=== PATIENT | male | born 1950 | race Caucasian/White ===

== ENCOUNTER 2020-05-27 22:59 | Inpatient (IN) | payer OTHER ==
[~2020-05-27] VITALS: Ht 180.3 cm; Wt 94.0 kg
--- NOTE | 2020-05-27 23:10 | NUR ---
PT. TO ROOM 10 VIA W/C WITH C/O HAVING A + COVID TEST APPROX. 2 WEEKS AGO AND NOW WITH C/O SOB. O2 SAT ON RA 89%. O2 3 LIT APPLIED. BILATERAL LUNG CARDENAS ARE DEMINISHED. NO C/O CP OFFERED.
[2020-05-27 23:59] LABS: HEMATOCRIT 42.7 % (39.0-50.0); HEMOGLOBIN 14.7 g/dl (14.0-18.0); IMMATURE GRANULOCYTES 0.7 % (0.0-5.0); MEAN CORPUSCULAR HGB CONC 34.4 g/dL CAL (32.0-36.0); NEUT# 8.72 thou/uL (1.82-7.42); RED BLOOD COUNT 4.45 mill/uL (4.70-6.10); RED CELL DISTRI WIDTH 12.8 % (11.5-15.5)
[2020-05-28 00:04] LABS: ALBUMIN 3.6 g/dL (3.2-5.0); ALKALINE PHOSPHATASE 91 u/l (38-126); ANION GAP 15 (6-22 (CALC)); BILIRUBIN, TOTAL 1.5 mg/dL (0.0-1.4); BUN 37 mg/dL (8-23); BUN/CREATININE RATIO 28 (12-20 (CALC)); CARBON DIOXIDE 22 mmol/l (22-30); CHLORIDE 103 mmol/l (95-108); CREATININE 1.3 mg/dL (0.7-1.3); GFR 55 ML/MIN (>=60 (CALC)); GFR FOR AFR.AMER. > 60 ML/MIN (>=60 (CALC)); POTASSIUM 3.7 mmol/l (3.5-5.1); SGOT/AST 53 u/l (19-48); SODIUM 137 mmol/l (137-146); TOTAL PROTEIN 7.9 g/dL (6.3-8.2)
--- NOTE | 2020-05-28 00:10 | NUR ---
RESP. ISOLATION MAINTAINED. NO C/O CP OFFERED. AT SIDE.
[2020-05-28] MEDS ORDERED: HAWTHORNE PO (01:04)
[2020-05-28] MEDS ORDERED: GARLIC OIL 15003 MG PO (01:05)
--- NOTE | 2020-05-28 01:05 | NUR ---
RESTING QUIETLY ON STRETCHER, NO ACUTE DISTRESS NOTED.
[2020-05-28] MEDS ORDERED: [UNRECOGNIZED DRUG - OTHER] PO (01:06)
--- NOTE | 2020-05-28 02:55 | NUR ---
PT VOIDED IN URINAL. SAMPLE SENT. PT STANDING AT BEDSIDE SO STRETCHER REMOVED AND HOSPITAL BED PLACED IN ROOM PT WILL BE AN ER HOLD FOR NOW. WAS AT BEDSIDE AND ADVISED OF ER HOLD. PT RESTING. SATS DECREASING. PT REMAINS ON O2 AT 7 LPM HF NC.
--- NOTE | 2020-05-28 03:06 | NUR ---
DR NOTIFIED OF SAT DOWN TO 97. RT CALLED.
--- NOTE | 2020-05-28 03:12 | NUR ---
HF NC INCREASED TO 11 LPM PER RT. SAT INCREASING. AT 92
[2020-05-28 03:57] LABS: URINE BLOOD DIPSTICK MODERATE (NEGATIVE); URINE COLOR YELLOW; URINE GLUCOSE - DIPSTICK NEGATIVE (NEGATIVE); URINE KETONE NEGATIVE (NEGATIVE); URINE NITRITE - DIPSTICK NEGATIVE (Negative); URINE PH 5.5 (4.5-8.0); URINE PROTEIN - DIPSTICK 100 mg/dL (NEG-TRACE); URINE SPECIFIC GRAVITY 1.025
--- NOTE | 2020-05-28 04:07 | NUR ---
SAT AT 95 %. PT RESTING.
[2020-05-28 04:23] LABS: URINE BILIRUBIN - DIPSTICK SMALL (NEGATIVE); URINE LEUK ESTERASE NEGATIVE (NEGATIVE)
[2020-05-28 04:24] LABS: URINE EPITHELIAL CELLS MODERATE EPI/hpf (0-FEW)
[2020-05-28 04:25] LABS: URINE BACTERIA MODERATE hpf; URINE COARSE GRANULAR CAST FEW lpf; URINE FINE GRAN CAST FEW lpf; URINE HYALINE CAST FEW lpf (NONE-RARE)
--- NOTE | 2020-05-28 06:23 | NUR ---
PT RESTING. IVF INFUSING. PT ON O2 @13 LPM HF-NC. NO C/O AT THIS TIME.
--- NOTE | 2020-05-28 07:29 | NUR ---
RECIEVED FOR CARE. aSSESSMENT COMPLETED. call kendrick with in reach.
--- NOTE | 2020-05-28 11:22 | NUR ---
PATIENT COMFORTABLE. NO DISTRESS. REQUESTED TO USE URINAL. CALL NICOLE WITH IN REACH.
--- NOTE | 2020-05-28 11:36 | NUR ---
Covid swab ( [employer]) collected and sent.
--- NOTE | 2020-05-28 13:07 | NUR ---
DR CAMP AT BEDSIDE TO DISCUSS RESULTS AND POC.
--- NOTE | 2020-05-28 14:33 | NUR ---
REPORT TO Tosha TATE IN SBAR FORMAT. PATIENT AWARE OF PENDING TRANSFER.
--- NOTE | 2020-05-28 15:05 | NUR ---
transferred to impatient bed via stretcher. Stable, no apparent distress, good spirits.
--- NOTE | 2020-05-28 15:10 | NUR ---
TO [facility] VIA HOSPITAL BED, BEDSIDE REPORT GIVEN TO YOSELIN TATE.
[2020-05-28 15:25] VITALS: BP 137/92
--- NOTE | 2020-05-28 16:44 | NUR ---
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 PT DENIES THE NEED FOR OXYGEN BEFORE THIS, STATES WAS HAVING INCREASED SOB WITH MOVEMENT. STATES REFUSES THE FLU OR PNEUMONIA SHOT OR BLOOD PRODUCTS. PT APPEARS TO BE A PLEASANT ALERT/ORIENTED X3 PT. HIGH FLOW 02 AT 15 L PER N/C TO KEEP O2 AT 93-94 %.
--- NOTE | 2020-05-28 17:21 | NUR ---
PT RESTING QUIETLY ON BED, WATCHING TV, NO COMPLAINTS AT THIS TIME
--- NOTE | 2020-05-28 18:12 | NUR ---
PT SITTING UP ON SIDE OF BED, EATING DINNER TRAY. PT DENIES ANY COMPLAINTS AT THIS TIME. DENIES SOB WHILE SITTING, SATS WHILE SITITNG UPRIGHT ARE89% ON 10 LITRES PER N/C
--- NOTE | 2020-05-28 19:30 | NUR ---
PT SITTING UP ON SIDE OF BED EATING. NO RESP DISTRESS NOTED. CALL NICOLE IN REACH.
[2020-05-28 20:00] VITALS: BP 136/77
--- NOTE | 2020-05-28 22:00 | NUR ---
PT LYING IN BED WATCHING TV. NO RESP DISTRESS NOTED. CALL NICOLE IN REACH.
[2020-05-29] VITALS (7 sets, daily range): BP systolic 130–169; BP diastolic 77–100
--- NOTE | 2020-05-29 | NUR ---
PT AWAKE AND ALERT, WATCHING TV. NO RESP DISTRESS NOTED. CALL NICOLE IN REACH.
--- NOTE | 2020-05-29 02:00 | NUR ---
PT AWAKE WITH TV ON. RELATED HE COULDNT SLEEP. NO RESP DISTRESS NOTED. CALL NICOLE IN REACH.
--- NOTE | 2020-05-29 05:05 | NUR ---
LAB AT BEDSIDE.
[2020-05-29 06:08] LABS: HEMATOCRIT 39.7 % (39.0-50.0); HEMOGLOBIN 13.5 g/dl (14.0-18.0); IMMATURE GRANULOCYTES 0.4 % (0.0-5.0); MEAN CELL VOLUME 96.6 fL CALC (80.0-100.0); MEAN CORPUSCULAR HGB 32.8 pG CALC (26.0-32.0); NEUT# 7.99 thou/uL (1.82-7.42); RED BLOOD COUNT 4.11 mill/uL (4.70-6.10); RED CELL DISTRI WIDTH 13.1 % (11.5-15.5)
[2020-05-29 06:31] LABS: ALKALINE PHOSPHATASE 71 u/l (38-126); ANION GAP 13 (6-22 (CALC)); BUN 49 mg/dL (8-23); BUN/CREATININE RATIO 48 (12-20 (CALC)); CARBON DIOXIDE 21 mmol/l (22-30); CHLORIDE 111 mmol/l (95-108); GFR > 60 ML/MIN (>=60 (CALC)); GFR FOR AFR.AMER. > 60 ML/MIN (>=60 (CALC)); POTASSIUM 4.2 mmol/l (3.5-5.1); SGOT/AST 38 u/l (19-48); SODIUM 140 mmol/l (137-146)
[2020-05-29 06:37] LABS: ALBUMIN 2.7 g/dL (3.2-5.0); BILIRUBIN, TOTAL 0.5 mg/dL (0.0-1.4); C-REACTIVE PROTEIN > 9.0 mg/dL (0-0.9); TOTAL PROTEIN 6.1 g/dL (6.3-8.2)
--- NOTE | 2020-05-29 08:58 | NUR ---
PT HAD RUN OF VTACH AND NUMEROUS PVC'S, NOTIFIED RESP FOR EKG
--- NOTE | 2020-05-29 09:15 | NUR ---
PT DENIES ANY CHEST PAIN, STATES FEELS MUCH BETTER THAN HE DID YESTERDAY.
--- NOTE | 2020-05-29 10:06 | NUR ---
EKG OBTAINED PER REQUEST.
--- NOTE | 2020-05-29 12:07 | NUR ---
PT SITTING UP IN RECLINER EATING LUNCH, O2 AT 10 L PER /NC PT DENIES ANY INCREASED SOB. DENIES CHEST PAIN
--- NOTE | 2020-05-29 16:35 | NUR ---
PT RESTING QUIETLY ON BED, WATCHING TV, PT STATES FEELS MUCH BETTER TODAY THAN HE HAS IN THE LAST WEEK, SATS REMAIN AT 92% ON 10 L PER N/C
--- NOTE | 2020-05-29 17:57 | NUR ---
PT SITTING UP ON SIDE OF BED EATING DINNER TRAY. STATES WILL BE BRINGING HIM A SMOOTHIE AROUND 7 TONIGHT. STATES FEELS MUCH BETTER,, PT STILL HAVING RUNS OF VTACH AND PVCS, THAT LAST APPROX 30 SEC, NO CHEST PAIN, NO INCREASED SOB WITH THOSE. SATS REMAIN IN THE HIGH 80'S LOW 90'S
--- NOTE | 2020-05-29 18:55 | NUR ---
RECEIVED REPORT. PT BEDRESTING. WATCHING TV
--- NOTE | 2020-05-29 20:00 | NUR ---
HAS BEEN TALKING ON PHONE. NO DISTRESS. O2 SAT 95% WIFEN SENT A SMOOTHIE WHICH PT READILY DRANK AND TOLERATED WELL. TALKATIVE AND PLEASANT. SAT DECREASES PT TALKS MORE, BUT RETURNS WHEN HE QUIETS. NO COUGH NOTED. REMAINS ON AIRBORNE PRECAUTIONS WITH N/C AT 10L/MIN
--- NOTE | 2020-05-29 21:44 | NUR ---
WATCHING TV. N/C VOICED
--- NOTE | 2020-05-29 22:08 | NUR ---
WATCHING TV. RESP EVEN AND NONLABORED. NO DISTRESS NOTED
[2020-05-30] VITALS (9 sets, daily range): BP systolic 125–163; BP diastolic 67–104
--- NOTE | 2020-05-30 | NUR ---
BEDRESTING. LIGHTS OUT. RESP EVEN AND NONLABORED. NO DISTRESS NOTED
--- NOTE | 2020-05-30 02:00 | NUR ---
BEDRESTING. LIGHTS OFF. TV OFF. NO COUGH OR DISTRESS NOTED
--- NOTE | 2020-05-30 04:00 | NUR ---
O2 CONTINUES AT 10L/MIN VIA N/C. SAT REAMINS GREATER THAN 90.
--- NOTE | 2020-05-30 05:02 | NUR ---
LAB HERE TO DRAW BLOOD
--- NOTE | 2020-05-30 05:09 | NUR ---
SITTING ON SIDE OF BED. RESP EVEN AND NONLABORED. PERIODIC DRY COUGH NOTED. DENIES SOB
[2020-05-30 05:51] LABS: HEMATOCRIT 42.6 % (39.0-50.0); IMMATURE GRANULOCYTES 0.9 % (0.0-5.0); MEAN CELL VOLUME 99.5 fL CALC (80.0-100.0); MEAN CORPUSCULAR HGB 32.7 pG CALC (26.0-32.0); MEAN CORPUSCULAR HGB CONC 32.9 g/dL CAL (32.0-36.0); NEUT# 9.03 thou/uL (1.82-7.42); RED BLOOD COUNT 4.28 mill/uL (4.70-6.10); RED CELL DISTRI WIDTH 13.6 % (11.5-15.5)
[2020-05-30 06:18] LABS: ALKALINE PHOSPHATASE 94 u/l (38-126); ANION GAP 15 (6-22 (CALC)); BILIRUBIN, TOTAL 0.5 mg/dL (0.0-1.4); BUN 56 mg/dL (8-23); BUN/CREATININE RATIO 55 (12-20 (CALC)); CARBON DIOXIDE 20 mmol/l (22-30); CHLORIDE 113 mmol/l (95-108); GFR > 60 ML/MIN (>=60 (CALC)); GFR FOR AFR.AMER. > 60 ML/MIN (>=60 (CALC)); POTASSIUM 4.7 mmol/l (3.5-5.1); SGOT/AST 47 u/l (19-48); SODIUM 143 mmol/l (137-146); TOTAL PROTEIN 6.6 g/dL (6.3-8.2)
[2020-05-30 06:29] LABS: C-REACTIVE PROTEIN 14.9 mg/dL (0-0.9)
--- NOTE | 2020-05-30 06:50 | NUR ---
BEDRESTING. RESP EVEN AND NONLABORED. NO DISTRESS NOTED
--- NOTE | 2020-05-30 07:11 | NUR ---
Patient is screened for PT intervention and no needs are identified at this time
--- NOTE | 2020-05-30 07:32 | NUR ---
PRELIMINARY CULTURE RESULTS CALLED TO . 1 BOTTLE GROWING GRAM (+) COCCI. NEW ORDER FOR VANCOMYCIN 1 GRAM ENTERED.
--- NOTE | 2020-05-30 10:20 | NUR ---
NEW IV #22 TO RW STARTED 05/30/20 #20 LAC REMOVED DUE TO CONTINUOUS LEAKING, INTACT UPON REMOVAL.
--- NOTE | 2020-05-30 12:12 | NUR ---
PT SLEEPING IN BED. NO DISTRESS NOTED. CONTINUE TO MONITOR.
--- NOTE | 2020-05-30 15:12 | NUR ---
GINGERALE TAKEN TO PT. PT DENIES ANY OTHER NEEDS AT THIS TIME. O2 VIA NC TITRATED DOWN TO 12L HUMIDIFIED HIGHFLOW. O2 SUSTAINING 90-92%. CONTINUE TO MONITOR.
--- NOTE | 2020-05-30 20:14 | NUR ---
ASSESSMENT COMPLETED. NO DISTRESS NOTED; DENIES PAIN AND REPORTS FEELING BETTER. PT. STILL REPORTING NO BM AND REPORTS HE WILL TAKE WARM PRUNE JUICE IN AM IF STILL NO BM AND REPORTS IT IS LIKELY DUE TO MINIMAL INTAKE. O2 INFUSING @12LITERS/MIN ON HF AND SPO2 WNL. VSS. URINAL EMPTIED. ENCOURAGED TO CALL FOR ANY NEEDS. CALL LIGHT IS IN REACH.
--- NOTE | 2020-05-30 21:40 | NUR ---
PT. SITTING UP ON THE SIDE OF THE BED AND PO FLUIDS OFFERED. DENIES FURTHER NEEDS. URINAL EMPTIED. CALL LIGHT IS IN REACH.
[2020-05-31] VITALS (10 sets, daily range): BP systolic 122–167; BP diastolic 82–97
--- NOTE | 2020-05-31 | NUR ---
PT. ASSISTED TO LAY DOWN IN BED; DENIES NEEDS/PAIN. O2 REMAINS AT SAME RATE. URINAL EMPTIED.. CALL LIGHT IS IN REACH.
--- NOTE | 2020-05-31 02:00 | NUR ---
RESTING IN BED WITH NO DISTRESS NOTED.
--- NOTE | 2020-05-31 03:00 | NUR ---
RESTING IN BED WITH NO DISTRESS NOTED; DENIES NEEDS. CALL LIGHT IS IN REACH.
--- NOTE | 2020-05-31 05:25 | NUR ---
NO DISTRESS NOTED. CONTINUES WITH COUGH. SPO2 95%. URINAL AND BSC EMPTIED.
[2020-05-31 06:11] LABS: HEMATOCRIT 39.5 % (39.0-50.0); HEMOGLOBIN 13.1 g/dl (14.0-18.0); IMMATURE GRANULOCYTES 1.2 % (0.0-5.0); MEAN CELL VOLUME 99.2 fL CALC (80.0-100.0); MEAN CORPUSCULAR HGB 32.9 pG CALC (26.0-32.0); MEAN CORPUSCULAR HGB CONC 33.2 g/dL CAL (32.0-36.0); NEUT# 7.82 thou/uL (1.82-7.42); RED BLOOD COUNT 3.98 mill/uL (4.70-6.10); RED CELL DISTRI WIDTH 13.8 % (11.5-15.5)
[2020-05-31 06:35] LABS: ALBUMIN 2.7 g/dL (3.2-5.0); ALKALINE PHOSPHATASE 79 u/l (38-126); ANION GAP 11 (6-22 (CALC)); BILIRUBIN, TOTAL 0.5 mg/dL (0.0-1.4); BUN 39 mg/dL (8-23); BUN/CREATININE RATIO 42 (12-20 (CALC)); C-REACTIVE PROTEIN 8.4 mg/dL (0-0.9); CARBON DIOXIDE 20 mmol/l (22-30); CHLORIDE 116 mmol/l (95-108); CREATININE 0.9 mg/dL (0.7-1.3); GFR > 60 ML/MIN (>=60 (CALC)); GFR FOR AFR.AMER. > 60 ML/MIN (>=60 (CALC)); POTASSIUM 4.4 mmol/l (3.5-5.1); SGOT/AST 38 u/l (19-48); SODIUM 143 mmol/l (137-146)
--- NOTE | 2020-05-31 07:00 | NUR ---
REPORT RECEIVED FROM LEA SALVADOR. PT RESTING IN BED SEMI FOWLERS; ALERT AND ORIENTED X 3. DENIES PAIN. RESPIRATIONS EVEN AND UNLABORED ON HUMIDIFIED OXYGEN 12L VIA HIGH FLOW NASAL CANNULA; SOB WITH EXERTION OF REPOSITIONING TO SITTING ON EDGE OF BED. DENIES PAIN. LUNG SOUNDS ARE CLEAR/DIMINISHED. IV FLUIDS INFUSING WITHOUT DIFFICULTY; IV SITE APPEARS HEALTHY. ON AIRBORNE/CONTACT PRECAUTIONS FOR POSITIVE COVID. POC REVIEWED. PT ENCOURAGED TO VERBALIZE CONCERNS. STATES UNDERSTANDING. SAFETY MEASURES IN PLACE. CALL LIGHT WITHIN REACH.
--- NOTE | 2020-05-31 08:15 | NUR ---
DR. CAMP AT BEDSIDE FOR EVAL.
--- NOTE | 2020-05-31 08:36 | NUR ---
PRINCIPAL TRAINER AT BEDSIDE FOR ECHOCARDIOGRAM.
--- NOTE | 2020-05-31 09:00 | NUR ---
IV FLUIDS NOW INFUSING AT KVO; NEW ORDER FOR SALINE NASAL SPRAY DUE TO SMALL AMOUNT OF BLEEDING FROM NOSE WHEN PT BLOWS HIS NOSE. ROCEPHIN INFUSING AT THIS TIME. CARDIAC MONTIOR READING SINUS RHYTHM.
--- NOTE | 2020-05-31 11:30 | NUR ---
SITTING UP ON EDGE OF BED TALKING ON CELL PHONE. LUNCH PROVIDED. PT VOIDING CLEAR YELLOW URINE IN BEDSIDE URINAL.
--- NOTE | 2020-05-31 13:49 | NUR ---
OXYGEN CONTINUES AT 12L; SPO2 94%; VSS.
--- NOTE | 2020-05-31 17:50 | NUR ---
NO CURRENT NEEDS AT THIS TIME. BELONGINGS DROPPED OFF BY . PT USES CALL LIGHT PRN FOR ASSISTANCE. VERBALIZES HIS DESIRE FOR DISCHARGE. CALL LIGHT WITHIN REACH.
--- NOTE | 2020-05-31 19:00 | NUR ---
RECEIVED REPORT FROM AM NURSE.PATIENT RESTING IN BED. PATIENT VITALS STABLE. WILL CONTINUE TO MONITOR.
--- NOTE | 2020-05-31 22:00 | NUR ---
PATIENT RESTING IN BED. PATIENT ENCOURAGED TO TURN AND PRONE. PATIENT CONTINUES ON HIGH FLOW NC. PATIENT WITH NO SIGNS OF DISTRESS. WILL CONTINUE TO MONITOR.
[2020-06-01] VITALS (12 sets, daily range): BP systolic 78–190; BP diastolic 54–97
--- NOTE | 2020-06-01 00:09 | NUR ---
PATIENT RESTING IN BED. PATIENT ASSISTED WITH URINAL. PATIENT EDUCATED ON IMPORTANCE OF MAINTAINING NC IN PLACE. PATIENT ENCOURAGED TO TURN/PRONE. PATIENT CONTINUES WITH NS IN INFUSING. WILL CONTINUE TO MONITOR.
--- NOTE | 2020-06-01 02:00 | NUR ---
PATIENT CONTINUES ON SIDE. PATIENT TOLERATING WELL. PATIENT CONTINUES TO VOID IN URINAL. FLUIDS CONTINUE TO INFUSE. PATIENT WITH NO COMPLAINTS. PATIENT CONTINUES ON HIGH FLOW NC. NO CHANGES. WILL CONTINUE TO MONITOR.
--- NOTE | 2020-06-01 04:30 | NUR ---
PATIENT RESTING IN BED. PATIENT WITH NO COMPLAINTS. REMAINS AFEBRILE. PATIENT CONTINUES ON HIGH FLOW. TOLERATING WELL. PATIENT ENCOURAGED TO TURN AND REPOSITIONED. WILL CONTINUE TO MONITOR.
--- NOTE | 2020-06-01 05:59 | NUR ---
PATIENT RESTING IN BED. NO CHANGES TO PATIENT O2/ REMAINS ON HIGH FLOW. PATIENT TOLERATING WELL. CONTINUES TO COUGH AND SOB WITH EXERTION. PATIENT RESTLESS. PATIENT CONTINUES WITH FLUIDS INFUSING. AFEBRILE. WILL CONTINUE TO MONITOR.
--- NOTE | 2020-06-01 07:03 | NUR ---
REPORT RECEIVED FROM PAINTER SKI EDGE, PT RESTING QUIETLY ON STRETCHER, ALERT ORIENTED X3
--- NOTE | 2020-06-01 09:49 | NUR ---
PT SITTING UP IN CHAIR , TALKING ON PHONE, DENIES ANY COMPLAINT AT THIS TIME, IS TALKING AND JOKING WITH STAFF
--- NOTE | 2020-06-01 14:10 | NUR ---
PT RESTING QUIETLY ON BED, NO COMPLAINTS AT THIS TIME, DENIES ANY SOB, 02 REMAINS AT 12 L PER NC
--- NOTE | 2020-06-01 16:05 | NUR ---
PTS SENT CARE PACKAGE TO PT, PT WANTED TO GET UP AND GO TO WINDOW TO PHYSICALLY SEE HER, HELPED PT TO WINDOW AND PLACED CHAIR BEHIND HIM IN CASE NEEDED TO SIT, PT SSTOOD AT WINDOW FOR APPROX 15 MIN AND LOOKED AT WHILE TALKING ON PHONE, PT DENIES BECOMING SOB, STATES FEELS BETTER WHILE STANDING UP AND MOVING AROUND, WILL SPEAK TO DR. CAMP ABOUT POSSIBLE SLEEPING PILL FOR PT. STATES HARD TO SLEEP WHILE HERE.
--- NOTE | 2020-06-01 21:00 | NUR ---
PATIENT SITS ON THE SIDE OF THE BED. DOES BECOME SOB WITH EXERTION. O2 SATS DO DROP TO 80'S WITH EXERTION OR IF HE TAKES IT OFF TO CLEAN HIS NOSE. PATIENT IS ON 11 L/MIN HIGH FLOW NC H. NURSE ASSESSMENT PERFORMED. POC DISCUSSED. R-WRIST 20 G IV INTACT, NS INFUSING AT 10 ML/HR. SR ON TELEMETRY. BP ELEVATED AT 170'S MMHG. SELF REPOSITIONS. URINAL EMPTIED, RINE YELLOW/CLEAR. REQUESTS A SNACK, WILL PROVIDE. CALL LIGHT WITHIN REACH.
--- NOTE | 2020-06-01 22:48 | NUR ---
PATIENT BLE TO TOLERATE LOVENOX INJECTION, ALSO GAVE SONATA FOR SLEEPING PER PATIENT REQUEST. ALSO NOTIFIED DR CAMP OF PATIENT'S BP 180-190 SYSTOLIC.
--- NOTE | 2020-06-01 23:00 | NUR ---
NEW ORDERS RECEIVED BY DR CAMP REGARDING PATIENT'S BP. ORDERS SENT TO [facility] STAT.
--- NOTE | 2020-06-01 23:30 | NUR ---
PO BP MED GIVEN TO PATIENT, WILL CONTINUE TO MONITOR VITAL SIGNS.
[2020-06-02] VITALS (15 sets, daily range): BP systolic 132–174; BP diastolic 70–121
--- NOTE | 2020-06-02 | NUR ---
PATIENT'S BP CONTINUES TO BE 180'S SYSTOLIC ABOUT 25 MINUTES AFTER GIVEN PO NORVASC. PATIENT REPORTS HE IS ON HOMEOPATHIC MEDICATIONS AT HOME FOR BLOOD PRESSURE AND HE WILL EITHER HAVE TO LEAVE THE HOSPITAL TO BE ABLE TO TAKE HIS MEDICATION OR HAVE THE DOCTOR APPROVE HIS MEDICATIONS. I HAVE EXPLAINED TO THE PATIENT HE CAN TALK TO THE DOCTOR TOMORROW ABOUT HIS HOMEOPATHIC MEDICATIONS AND HAVE HIS DROP THEM OFF, I HAVE EXPLAINED TO THE PATIENT I HAVE SET HIS BLOOD PRESSURE TO BE TAKEN EVERY 15 MINUTES TO CLOSELY MONITOR AND THERE IS IV PRN MEDICATION FOR BLOOD PRESSURE WELL. PATIENT REPORTS HE DOES NOT LIKE THAT WE ARE GIVING HIM MEDICATIONS THAT ARE FOREIGN TO HIS BODY AND THAT HE WILL HAVE TROUBLE WEANING THEM OFF WHEN HE IS DISCHARGED.
[2020-06-02 05:53] LABS: HEMATOCRIT 38.9 % (39.0-50.0); HEMOGLOBIN 12.6 g/dl (14.0-18.0); IMMATURE GRANULOCYTES 1.3 % (0.0-5.0); MEAN CELL VOLUME 99.7 fL CALC (80.0-100.0); MEAN CORPUSCULAR HGB 32.3 pG CALC (26.0-32.0); MEAN CORPUSCULAR HGB CONC 32.4 g/dL CAL (32.0-36.0); NEUT# 7.16 thou/uL (1.82-7.42); RED BLOOD COUNT 3.9 mill/uL (4.70-6.10); RED CELL DISTRI WIDTH 13.4 % (11.5-15.5)
--- NOTE | 2020-06-02 05:59 | NUR ---
PATIENT RESTS WITH EYES CLOSED. NO ACUTE DISTRESS SHOWN. CALL LIGHT WITHIN REACH.
[2020-06-02 06:23] LABS: ALBUMIN 2.5 g/dL (3.2-5.0); ALKALINE PHOSPHATASE 69 u/l (38-126); ANION GAP 10 (6-22 (CALC)); BILIRUBIN, TOTAL 0.4 mg/dL (0.0-1.4); BUN 21 mg/dL (8-23); BUN/CREATININE RATIO 29 (12-20 (CALC)); C-REACTIVE PROTEIN 6.5 mg/dL (0-0.9); CARBON DIOXIDE 22 mmol/l (22-30); CHLORIDE 113 mmol/l (95-108); CREATININE 0.7 mg/dL (0.7-1.3); GFR > 60 ML/MIN (>=60 (CALC)); GFR FOR AFR.AMER. > 60 ML/MIN (>=60 (CALC)); POTASSIUM 4.4 mmol/l (3.5-5.1); SGOT/AST 39 u/l (19-48); SODIUM 140 mmol/l (137-146); TOTAL PROTEIN 5.5 g/dL (6.3-8.2)
--- NOTE | 2020-06-02 07:26 | NUR ---
PT RESTING QUIETLY ON BED, ON RIGHT SIDE, FLUIDS INFUSING, HIGH FLOW REMAINS ON, PT DENIES ANY COMPLAINTS AT THIS TIME
--- NOTE | 2020-06-02 13:02 | NUR ---
PT SITTING UP IN CHAIR , STATES FEELS MUCH BETTER, SENT PTS MEDICATIONS UP PER VOLUNTEER, ALL HERBAL AND VITAMINS. PHARMACY NOTIFIED TO BE ABLE TO CHECK FOR ANY CONFLICTS BETWEEN MEDS GIVEN.
--- NOTE | 2020-06-02 14:23 | NUR ---
PT PLACED BACK IN BED, WATCHING TV.. NO COMPLAINT AT THIS TIME
--- NOTE | 2020-06-02 19:00 | NUR ---
REPORT RECEIVED FROM Gabo ANDERSON RN, CARE OF PT ASSUMED AT THIS TIME.
--- NOTE | 2020-06-02 20:50 | NUR ---
PT SITTING UP IN BED, WATCHING TV. PHYSICAL ASSESMENT COMPLETE. PT ON HIGH-FLOW NASAL CANNULA AT 11 L/MIN. RESPIRATIONS REGULAR AND UNLABORED. LUNGS CLEAR AND DIMINISHED. NO COUGH AT PRESENT. PT VERBALIZES HE FEELS READY TO GO HOME. PLAN OF CARE REVIEWED, PT VERBALIZES UNDERSTANDING AND DENIES QUESTIONS. PT IS ON ISOLATION PRECAUTIONS FOR COVID-19. SCHEDULED AND PRN MEDICATIONS ADMINISTERED. PT DENIES FURTHER NEEDS AT THIS TIME. CALL NICOLE WITHIN REACH, AGREES TO CALL PRN.
--- NOTE | 2020-06-02 22:30 | NUR ---
02 HUMIDIFIER EMPTY, REFILLED WITH STERILE WATER.
[2020-06-03] VITALS (20 sets, daily range): BP systolic 125–181; BP diastolic 67–99
--- NOTE | 2020-06-03 00:09 | NUR ---
PT APPEARS TO BE SLEEPING COMFORTABLY, LAYING IN BED WITH EYES CLOSED, RESPIRATIONS REGULAR AND UNLABORED. NO APPARENT DISTRESS. CALL NICOLE REMIANS WITHIN REACH.
--- NOTE | 2020-06-03 02:20 | NUR ---
PT APPEARS TO BE SLEEPING COMFORTABLY, LAYING IN BED WITH EYES CLOSED, RESPIRATIONS REGULAR AND UNLABORED. NO APPARENT DISTRESS. CALL NICOLE REMIANS WITHIN REACH.
--- NOTE | 2020-06-03 04:20 | NUR ---
PT APPEARS TO BE SLEEPING COMFORTABLY, LAYING IN BED WITH EYES CLOSED, RESPIRATIONS REGULAR AND UNLABORED. NO APPARENT DISTRESS. CALL NICOLE REMIANS WITHIN REACH.
--- NOTE | 2020-06-03 05:41 | NUR ---
FIRE TENDER DALE IN ROOM TO DRAW PTS LABS.
[2020-06-03 06:26] LABS: HEMATOCRIT 41.6 % (39.0-50.0); HEMOGLOBIN 13.4 g/dl (14.0-18.0); IMMATURE GRANULOCYTES 1.8 % (0.0-5.0); MEAN CORPUSCULAR HGB 32.5 pG CALC (26.0-32.0); MEAN CORPUSCULAR HGB CONC 32.2 g/dL CAL (32.0-36.0); NEUT# 5.24 thou/uL (1.82-7.42); RED BLOOD COUNT 4.12 mill/uL (4.70-6.10); RED CELL DISTRI WIDTH 13.6 % (11.5-15.5)
[2020-06-03 06:47] LABS: ALBUMIN 2.6 g/dL (3.2-5.0); ALKALINE PHOSPHATASE 64 u/l (38-126); ANION GAP 9 (6-22 (CALC)); BILIRUBIN, TOTAL 0.5 mg/dL (0.0-1.4); BUN 17 mg/dL (8-23); BUN/CREATININE RATIO 23 (12-20 (CALC)); C-REACTIVE PROTEIN 4.6 mg/dL (0-0.9); CHLORIDE 108 mmol/l (95-108); CREATININE 0.7 mg/dL (0.7-1.3); GFR > 60 ML/MIN (>=60 (CALC)); GFR FOR AFR.AMER. > 60 ML/MIN (>=60 (CALC)); POTASSIUM 4.5 mmol/l (3.5-5.1); SGOT/AST 40 u/l (19-48); SODIUM 139 mmol/l (137-146); TOTAL PROTEIN 5.7 g/dL (6.3-8.2)
[2020-06-03 06:52] LABS: CARBON DIOXIDE 27 mmol/l (22-30)
--- NOTE | 2020-06-03 07:30 | NUR ---
pt awake in bed; no apparent distress noted; pt offers no complaints; pt expresses wishes to go home; severity of condition explained; assessment completed at this time; pt alert and oriented; denies pain; no n/v noted; resp even and unlabored; no resp distress noted; lungs clear/ rales bases; skin color wnl; o2 per nc hi 12L; group underwriter to attempt to wean o2 per MD verbal order; hr reg; pedal pulses present; no edema noted; sr/sb with pvc on monitor; abd soft with bs present; no bm noted per group underwriter; urinal at bedside/bsc at bedside; #22 to rw saline locked; no redness or edema noted at site; plan of care/ am meds explained; call light within reach; will continue to monitor
--- NOTE | 2020-06-03 08:26 | NUR ---
awake sitting up in bed eating breakfast; pt offers no complaints; o2 per nc; iv intact and patent; call light within reach
--- NOTE | 2020-06-03 10:05 | NUR ---
resting in bed with eyes closed; no apparent distress noted; o2 per nc; iv intact; sr/pvc on monitor; call light within reach; will continue to monitor
--- NOTE | 2020-06-03 11:30 | NUR ---
o2 sat 96%; o2 titrated to 10L hi rula NC
--- NOTE | 2020-06-03 12:08 | NUR ---
awake in bed earting lunch; no apparent distress noted; o2 per nc; iv intact; sr on monitor; call light within reach; will continue to monitor
--- NOTE | 2020-06-03 14:20 | NUR ---
awake in bed; o2 per nc; iv intact; fruit (from spouse) provided; sr on monitor; pt deny needs; call light within reach; will continue to monitor
--- NOTE | 2020-06-03 16:00 | NUR ---
awake in bed; no apparent distress noted; pt offers no complaints; iv intact; o2 per nc; sr on monitor; call light within reach; will continue to monitor
--- NOTE | 2020-06-03 17:53 | NUR ---
awake in bed; no apparent distress noted; pt offers no complaints; iv intact; o2 at 10L; sr/pvc on monitor; call light within reach
--- NOTE | 2020-06-03 19:00 | NUR ---
REPORT RECEIVED FROM Mariela VASQUEZ RN, CARE OF PT ASSUMED AT THIS TIME.
--- NOTE | 2020-06-03 19:30 | NUR ---
PT LAYING IN BED HAVING CONVERSATION ON PHONE. PHYSICAL ASSESMENT COMPLETE. RESPIRATIONS REGULAR AND UNLABORED. DELIVERED PACKAGE SENT FROM SPOUSE TO PT. GINGERALE PROVIDED PER PTS REQUEST. SCHEDULED LOVENOX AND PRN APAP AND SONATA ADMINISTERED, SEE E-MAR. PLAN OF CARE REVIEWED, PT VERBALIZES UNDERSTANDING AND DENIES QUESTIONS. PT DENIES FURTHER NEEDS AT THIS TIME. CALL NICOLE WITHIN REACH, AGREES TO CALL PRN.
--- NOTE | 2020-06-03 22:21 | NUR ---
PT LAYING IN BED TALKING ON PHONE.
--- NOTE | 2020-06-03 23:59 | NUR ---
200ML CLEAR YELLOW URINE EMPTIED FROM URINAL. PT SITTING UP IN BED WATCHING TV. DENIES FURTHER NEEDS AT THIS TIME. CALL NICOLE WITHIN REACH, AGREES TO CALL PRN.
[2020-06-04] VITALS (20 sets, daily range): BP systolic 130–178; BP diastolic 69–106
--- NOTE | 2020-06-04 02:00 | NUR ---
PT APPEARS TO BE SLEEPING COMFORTABLY, LAYING IN BED WITH EYES CLOSED, RESPIRATIONS REGULAR AND UNLABORED. NO APPARENT DISTRESS. CALL NICOLE REMIANS WITHIN REACH.
--- NOTE | 2020-06-04 04:25 | NUR ---
200 ML CLEAR YELLOW URINE EMPTIED FROM URINAL. RESPIRATIONS REGULAR AND UNLABORED. DENIES FURTHER NEEDS AT THIS TIME. CALL NICOLE WITHIN REACH, AGREES TO CALL PRN.
--- NOTE | 2020-06-04 06:01 | NUR ---
PT RESTING IN BED, AWAKE, DENIES NEEDS AT THIS TIME. CALL NICOLE WITHIN REACH, AGREES TO CALL PRN.
--- NOTE | 2020-06-04 07:15 | NUR ---
pt awake in bed; no apparent distress noted at this time; pt offers no complaints; assessment completed; pt alert and oriented; denies pain at current; no n/v noted; resp even and unlabored; lungs clear/ diminished bases; skin color wnl; o2 per nc at 10L; o2 sat 94%; o2 titrated to 8L hi rula nc; boiler room helper cough noted; hr reg; strong pulses; no edema noted; sr on monitor; abd soft with bs present; pt admits to bm last pm; not observed per this junior underwriter; pt voiding without complication; urinal at bedside; #22 to rw flushed and patent; no redness or edema noted at site; covid prec continued; plan of care/ am meds explained; call light within reach; will continue to monitor
--- NOTE | 2020-06-04 08:29 | NUR ---
Dr Stewart present at bedside to assess pt and discuss plan of care
--- NOTE | 2020-06-04 10:10 | NUR ---
awake in bed; offers no complaints; iv intact; sr/pvc on monitor; o2 per nc; call light within reach; will continue to monitor
--- NOTE | 2020-06-04 12:15 | NUR ---
pt awake in bed; no apparent distress noted; resp even and unlabored; o2 per nc; iv intact; sr on monitor; call light within reach; will continue to monitor
--- NOTE | 2020-06-04 14:03 | NUR ---
awake up to bsc; no apparent distress noted; o2 per nc; iv intact; sr on monitor; call light within reach; will continue to monitor
--- NOTE | 2020-06-04 16:00 | NUR ---
awake in bsc; no apparent distress noted; pt offers no complaints; iv intact; sr/pvc on monitor; o2 per nc at 8L; call light within reach; will continue to monitor
--- NOTE | 2020-06-04 18:01 | NUR ---
awake in bed eating dinner; no apparent distress noted; sr on monitor; o2 per nc; iv intact; call light within reach
--- NOTE | 2020-06-04 19:30 | NUR ---
RESTING IN BED WATCHING TV. RESP NON-LABORED AT REST, WANG. USING O2 AT 8 L NC. O2 SAT 88% PATIENT EATING PIZZA AND DRINKING SODA THAT HIS DAUGHTER HAD ORDERED AND DELIVERED FOR HIM. PATIENT TALKATIVE AND PLEASANT. BREATH SOUNDS CLEAR IN UPPER LOBES, DIMINISHED IN THE BASES. IV IN RW SECURED WITH COBAN. FISH STRINGER ASSEMBLER SHOWS SR WITH OCC PAC'S. DISCUSSED PLAN OF CARE. DENIES NEEDS AT THIS TIME. CALL NICOEL IN REACH.
--- NOTE | 2020-06-04 22:00 | NUR ---
RESTING WITHOUT COMPLAINTS. VSS. MEDICATED WITH SONATA 5 MG PO FOR SLEEP ORDERED.
--- NOTE | 2020-06-04 23:50 | NUR ---
PATIENT SLEEPING SOUNDLY. O2 SAT DROPPED TO 85-86% INCREASED O2 TO 10 L AND SAT PICKED BACK UP TO 89-93% WILL MONITOR CLOSELY.
[2020-06-05] VITALS (22 sets, daily range): BP systolic 117–174; BP diastolic 58–111
--- NOTE | 2020-06-05 02:00 | NUR ---
SLEEPING SOUNDLY. VSS. SR WITH OCC PAC'S ON MONITORO2 SAT 94% ON 10 L O2.
--- NOTE | 2020-06-05 04:00 | NUR ---
O CHANGES TO REPORT. VSS. SR WITH [facility] PAC'S ON MONITOR.
[2020-06-05 05:55] LABS: HEMATOCRIT 42.2 % (39.0-50.0); HEMOGLOBIN 13.8 g/dl (14.0-18.0); IMMATURE GRANULOCYTES 0.8 % (0.0-5.0); MEAN CELL VOLUME 99.5 fL CALC (80.0-100.0); MEAN CORPUSCULAR HGB 32.5 pG CALC (26.0-32.0); MEAN CORPUSCULAR HGB CONC 32.7 g/dL CAL (32.0-36.0); NEUT# 7.6 thou/uL (1.82-7.42); RED BLOOD COUNT 4.24 mill/uL (4.70-6.10); RED CELL DISTRI WIDTH 13.3 % (11.5-15.5)
--- NOTE | 2020-06-05 06:00 | NUR ---
NO CHANGES TO REPORT. STABLE VS DURING THE NIGHT. O2 SAT 94-95% AT THIS TIME. O2 DECREASED TO 8 L.
[2020-06-05 06:48] LABS: ALBUMIN 2.9 g/dL (3.2-5.0); ALKALINE PHOSPHATASE 86 u/l (38-126); ANION GAP 10 (6-22 (CALC)); BILIRUBIN, TOTAL 0.4 mg/dL (0.0-1.4); BUN 26 mg/dL (8-23); BUN/CREATININE RATIO 32 (12-20 (CALC)); C-REACTIVE PROTEIN 2.5 mg/dL (0-0.9); CARBON DIOXIDE 24 mmol/l (22-30); CHLORIDE 109 mmol/l (95-108); CREATININE 0.8 mg/dL (0.7-1.3); GFR > 60 ML/MIN (>=60 (CALC)); GFR FOR AFR.AMER. > 60 ML/MIN (>=60 (CALC)); POTASSIUM 4.4 mmol/l (3.5-5.1); SGOT/AST 39 u/l (19-48); SODIUM 139 mmol/l (137-146); TOTAL PROTEIN 6.1 g/dL (6.3-8.2)
--- NOTE | 2020-06-05 07:25 | NUR ---
PATIENT IN BED ALERT AND ORIENTED AT THIS TIME DENIES ANY PAIN CALL LIGHT NEAR SIDERAILS UP X 2. O2 ON AT 8L. DENIES ANY PAIN AT THIS TIME. ALL SAFETY MEASURES ARE IN PLACE.
--- NOTE | 2020-06-05 09:25 | NUR ---
AT BEDSIDE DISCUSSING POC WITH PT.
--- NOTE | 2020-06-05 09:30 | NUR ---
PATIENT IN BED RESTING DENIES ANY NEEDS AT THIS TIME ALL SAFETY MEASURES ARE IN PLACE O2 ON AT 10L.
--- NOTE | 2020-06-05 10:08 | NUR ---
PATIENT WAS GIVEN A ANNUSOL SUPPOSITORY PER ORDER AT THIS TIME FOR C/0 HEMRROIDAL PAIN. PATIENT TEACHING GIVEN ON MEDICATION AND PATIENT VERBALIZED UNDERSTANDING OF MEDICATION. PATIENT TOLERATED MEDICATION INSERTION WITHOUT ISSUE AT THIS TIME.
--- NOTE | 2020-06-05 11:26 | NUR ---
PATIENT UP TO BEDSIDE COMMODE AND ASSISTED BACK TO BED. 02 REMAINS ON AT 8L. PATIENT DENIES ANY PAIN. PATIENT HAD LARGE SOFT BROWN STOOL AT THIS TIME. CALL LIGHT WITHIN REACH AND SIDERAILS UP X 2.
--- NOTE | 2020-06-05 12:16 | NUR ---
PATIENT SITTING IN BED AT THIS TIME. DENIES ANY NEEDS OR PAIN AT THIS TIME. O2 ON AT 8L AND SPO2 IS 92% AT THIS TIME. ALL SAFETY MEASURES ARE IN PLACE AT THIS ITME CALL LIGHT IS NEAR.
--- NOTE | 2020-06-05 13:23 | NUR ---
PATIENT RESTING IN BED AT THIS TIME DENIES ANY NEEDS. O2 REMAINS ON AND IN PLACE AT 8L. ALL SAFETY MEASURES ARE IN PLACE CALL LIGHT WITHIN REACH. SIDERAILS UP X 2
--- NOTE | 2020-06-05 15:15 | NUR ---
PATIENT IN BED AT THIS TIME WATCHING TV. PATIENT C/O THAT BP CUFF WAS TOO TIGHT. BP CUFF REAJUSTED AND PATIENT STATED "THAT FEELS SO MUCH BETTER". PATIENT DENIES ANY OTHER NEEDS AT THIS TIME. O2 REMAINS ON AT 8 LITERS. ALL SAFETY MEASURES ARE IN PLACE CALL LIGHT WITHIN REACH.
--- NOTE | 2020-06-05 15:46 | NUR ---
PATIENT IN BED AT THIS TIME 02 ON AT 8L PATIETN DENIES ANY PAIN AND STATES PAIN IS A 0 OUT OF 0-10 DENIES ALL NEEDS AT THIS TIME. CALL LIGHT WITHIN REACH, SIDERAILS UP X 2.
--- NOTE | 2020-06-05 17:29 | NUR ---
PATIENT RESTING AT THIS TIME DENIES ANY NEEDS AT THIS TIME 02 REMAINS ON AT 8L, SIDERAILS UP X 2 CALL LIGHT WITHIN REACH.
--- NOTE | 2020-06-05 18:08 | NUR ---
PATIENT RESTING IN BED DENIES ALL NEEDS AT THIS TIME 02 REMAINS ON AT 8 L CALL LIGHT WITHIN REACH AND SIDERAILS UP X 2.
--- NOTE | 2020-06-05 20:30 | NUR ---
RESTING IN BED WATCHING TV AND TALKING ON HIS CELL PHONE. ALERT AND ORIENTED. RESP SHALLOW, NON-LABORED. O2 ON AT 8 L NC. O2 SAT 98% BREATH SOUNDS CLEAR IN UPPER LOBES, DIMINISHED IN BILATERAL BASES. OCC NON-PRODUCTIVE COUGH NOTED. SALINE LOCK IN RW. POLITICAL RESEARCH SCIENTIST SHOWS SR WITH PAC'S. PATIENT C/O NOISE FROM AIR SCRUBBER AND REQUEST IT BE TURNED OFF. ADVISED PATIENT THAT AIR SCRUBBER COULD NOT BE TURNED OFF. DISCUSSED PLAN OF CARE. DENIES NEEDS AT THIS TIME.
--- NOTE | 2020-06-05 21:00 | NUR ---
SONATA 5 MG PO FOR SLEEP PER PATIENT REQUEST.
--- NOTE | 2020-06-05 22:00 | NUR ---
RESTING WITHOUT COMPLAINTS. VSS.
[2020-06-06] VITALS (24 sets, daily range): BP systolic 118–213; BP diastolic 62–108
--- NOTE | 2020-06-06 | NUR ---
RESTING WITHOUT COMPLAINTS. VSS. SR ON MONITOR.
--- NOTE | 2020-06-06 04:00 | NUR ---
SLEEPING. NO CHANGES TO REPORT. VSS.
--- NOTE | 2020-06-06 06:00 | NUR ---
SLEPT WELL. O2 SAT MAINTAINED 92-93% DURING THE NIGHT. O2 CONTINUES AT 8 L NC. SR ON MONITOR.
--- NOTE | 2020-06-06 07:30 | NUR ---
PATIENT IN BED ALERT AND ORINETED O2 REMAINS ON AT 8L PATIENT DENIES ALL ANY PAIN AT THIS TIME STATES PAIN IS A "0" OUT OF A PAIN SCALE OF 0-10. CALL LIGHT IS NEAR SIDERAILS UP X 2
--- NOTE | 2020-06-06 07:45 | NUR ---
TITRATED 02 DOWN AT THIS TIME TO 7L AND SPO2 IS 95%. PATIENT RESTING IN BED ALERT AND ORIENTED DENIES ANY PAIN. INSTRUCTED PATIENT TO CALL FOR NURSE IF BECOMES SHORT OF BREATH.
--- NOTE | 2020-06-06 09:45 | NUR ---
PATIENT IN BED AT THIS TIME O2 REMAINS TITRATED DOWN TO 7L AND SPO2 IS 93% AT THIS TIME. PATIENT DENIES ANY SHORTNESS OF BREATH AND OR ANY PAIN. ALL SAFETY MEASURES ARE IN [place] CALL LIGHT WITHIN REACH.
--- NOTE | 2020-06-06 11:43 | NUR ---
PATIENT SITTING UP IN CHAIR AT THIS TIME. O2 ON 7L AND SPO2 IS 90%. PATIENT DENIES ANY SHORTNESS OF BREATH. ALL SAFETY MEASURES ARE IN PLACE CALL LIGHT WITHIN REACH.
--- NOTE | 2020-06-06 14:05 | NUR ---
PATIENT IN BED TALKING ON PHONE. DENIES ANY NEEDS AT THIS TIME O2 REMAINS ON AT 7L AND SPO2 IS 91% AT THIS TIME. PATIENT STATES HE IS NOT SHORT OF BREATH AT THIS TIME. CALL LIGHT WITHIN REACH SIDERAILS UP X 2.
--- NOTE | 2020-06-06 17:01 | NUR ---
PATIENT BP AT THIS TIME 168/90 1OMG OF LABETALOL GIVEN IV AT THIS TIME. PATIENT RESTING DENIES HEADACHE AT THIS TIME. CALL LIGHT WITHIN REACH SIDERAILS UP X 2
--- NOTE | 2020-06-06 17:32 | NUR ---
BLOOD PRESSURE RE-CHECK AT THIS TIME IS 131/81 ON THE LEFT ARM. PATIENT DENIES ANY PAIN AT THIS TIME AND IS RESTING COMFORTABLY.
--- NOTE | 2020-06-06 18:07 | NUR ---
PATIENT IN BED AT THIS TIME. PATIENT DENIES ANY PAIN AND O2 REMAINS TITRATED DOWN TO 7L AND SPO2 IS 91% AT THIS TIME.IV #20 RAC REMAINS PATENT AND FLUSES WITHOUT ISSUES. ALL SAFETY MEASURES ARE IN PLACE CALL LIGHT WITHIN REACH AT THIS TIME.
--- NOTE | 2020-06-06 19:00 | NUR ---
REPORT RECEIVED FROM Gabo REYES RN, CARE OF PT ASSUMED AT THIS TIME.
--- NOTE | 2020-06-06 21:20 | NUR ---
PT MEDICATED ORDERED. NO APPARENT DISTRESS NOTED. APAP AND SLEEPING PILL ADMINISTERED UPON REQUEST. ICE CREAM AND TOOTHBRUSH PROVIDED. URINAL EMPTIED OF 175ML CLEAR YELLOW URINE. PT DENIES ANY OTHER WANTS OR NEEDS AT THIS TIME. CALL LIGHT WITHIN REACH. WILL CONTINUE TO MONITOR.
--- NOTE | 2020-06-06 23:20 | NUR ---
PT RESTING IN BED, APPEARS COMFORTABLE AND IN NO DISTRESS, RESPIRATIONS REGULAR AND UNLABORED. HEMODYNAMICS STABLE. CALL NICOLE WITHIN REACH, AGREES TO CALL PRN.
[2020-06-07] VITALS (18 sets, daily range): BP systolic 133–185; BP diastolic 74–103
--- NOTE | 2020-06-07 02:57 | NUR ---
PT APPEARS TO BE SLEEPING COMFORTABLY, NO APPARENT DISTRESS, RESPIRATIONS REGULAR AND UNLABORED. EYES CLOSED. HEMODYNAMICS STABLE. CALL NICOLE REMAINS WITHIN REACH.
--- NOTE | 2020-06-07 04:54 | NUR ---
FLIGHT RESERVATIONS MANAGER Dione IN ROOM TO DRAW AM LABS.
[2020-06-07 05:18] LABS: HEMATOCRIT 41.8 % (39.0-50.0); HEMOGLOBIN 13.6 g/dl (14.0-18.0); IMMATURE GRANULOCYTES 0.9 % (0.0-5.0); MEAN CELL VOLUME 100.7 fL CALC (80.0-100.0); MEAN CORPUSCULAR HGB 32.8 pG CALC (26.0-32.0); MEAN CORPUSCULAR HGB CONC 32.5 g/dL CAL (32.0-36.0); NEUT# 3.93 thou/uL (1.82-7.42); RED BLOOD COUNT 4.15 mill/uL (4.70-6.10); RED CELL DISTRI WIDTH 13.5 % (11.5-15.5)
--- NOTE | 2020-06-07 06:02 | NUR ---
AM LABS REDRAWN BY [facility], PER LAB YELLOW TUBE HEMOLYZED.
[2020-06-07 07:01] LABS: ALBUMIN 2.7 g/dL (3.2-5.0); ALKALINE PHOSPHATASE 69 u/l (38-126); ANION GAP 8 (6-22 (CALC)); BILIRUBIN, TOTAL 0.4 mg/dL (0.0-1.4); BUN 25 mg/dL (8-23); BUN/CREATININE RATIO 31 (12-20 (CALC)); CARBON DIOXIDE 25 mmol/l (22-30); CHLORIDE 110 mmol/l (95-108); CREATININE 0.8 mg/dL (0.7-1.3); GFR > 60 ML/MIN (>=60 (CALC)); GFR FOR AFR.AMER. > 60 ML/MIN (>=60 (CALC)); POTASSIUM 4.3 mmol/l (3.5-5.1); SGOT/AST 43 u/l (19-48); SODIUM 139 mmol/l (137-146); TOTAL PROTEIN 5.7 g/dL (6.3-8.2)
--- NOTE | 2020-06-07 07:05 | NUR ---
RECEIVED REPORT FROM NURSE ESPARZA. PATIENT RESTING IN BED RESPIRATION ARE UNLABORED. O2 ON 7L ALL SAFETY MEASURES ARE IN PLACE PATIENT IN STABLE CONDITION.
[2020-06-07 07:20] LABS: C-REACTIVE PROTEIN 2.3 mg/dL (0-0.9)
--- NOTE | 2020-06-07 08:08 | NUR ---
PATIENT SITTING UP IN BED AWAKE ALERT AND ORIENTED. PATIENT ASSESSMENT DONE AT THIS TIME 02 REMAINS ON HI-FLOW AT 7L SPO2 AT THIS IS 98%. ALL SAFETY MEASURES ARE IN PLACE CALL LIGHT WITHIN REACH
--- NOTE | 2020-06-07 10:08 | NUR ---
PATIENT SITTING UP IN CHAIR AT THIS TIME DENIES ANY NEEDS. 02 ON HI-FLOW AT 7L. ALL SAFETY MEASURES ARE IN PLACE.
--- NOTE | 2020-06-07 11:50 | NUR ---
PATIENT SITTING UP IN BED DENIES ANY NEEDS AT THIS TIME STATES NO PAIN OR SHORTNESS OF BREATH. O2 ON HI-FLOW AT 7L. ALL SAFETY MEASURES IN PLACE CALL LIGHT WITHIN REACH. WILL CONTINUE TO MONITOR.
--- NOTE | 2020-06-07 13:17 | NUR ---
PATIENT IN BED AT THIS TIME WATCHING TV. PATIENT PER ORDER PLACED ON .9NS AT 20 ML'S /HR. PATIENT EDUCATED ON REASONS FOR CONTINUEOUS IV THERAPY AT THIS TIME. PATIENT VERBALIZES UNDERSTANDING.
--- NOTE | 2020-06-07 14:00 | NUR ---
PATIENT SITTING UP IN BED AT THIS TIME WATCHING TELEVISION. PATIENT DENIES ANY PAIN OR SHORTNESS OF BREATH AT THIS TIME. IV REMAINS PATENT AND RUNNING AT 20 ML/HR WITH .9 N/S. HI-FLOW O2 REMAINS AT 7L AND PATIENT DENIES ANY SHORTNESS OF BREATH. ALL SAFETY MEASURES ARE IN PLACE CALL LIGHT WITHIN REACH.
--- NOTE | 2020-06-07 15:41 | NUR ---
PATIENT LAYING IN BED RESTING WITH EYES OPEN. PATIENT EDUCATED ON 02 TITRATIONS. EXPLIAN TO PATIENT THAT O2 WAS BEING TURNED DOWN TO 5L AT THIS TIME AND IF HE SOULD BECOME SHORT OF BREATH TO CONTACT NURSE IMMEDIANTELY. PATIENT VERBALIZES UNDERSTANDING OF PLAN OF CARE AT THIS TIME.
--- NOTE | 2020-06-07 16:18 | NUR ---
PATIENT IN BED WATCHING TV AT THIS TIME DENIES ANY SHORTNESS OF BREATH O2 IS ON 5L HI-FLOW AT THIS TIME . PATIENT ADVISED IF HE FEELS SHORT OF BREATH TO CALL OUT FOR NURSE. CALL LIGHT IS WITHIN REACH.
--- NOTE | 2020-06-07 18:09 | NUR ---
PATIENT SITTING IN BED AT THIS TIME. PATIENT REMAINS ON HI-FLOW O2 AT 5L. PATIENT DENIES ANY SHORTNESS OF BREATH AT THIS TIME. PATIENT DENIES ANY PAIN AND ALL SAFETY MEASURES ARE IN PLACE AT THIS TIME CALL LIGHT WITHIN REACH. PATIENT IN STABLE CONDITION FOR ON COMING SHIFT AT THIS TIME.
--- NOTE | 2020-06-07 19:00 | NUR ---
REPORT RECEIVED FROM Gabo REYES RN, CARE OF PT ASSUMED AT THIS TIME.
--- NOTE | 2020-06-07 20:00 | NUR ---
PHYSICAL ASSESMENT COMPLETE AND DOCUMENTED. PT EDUCATED ON PLAN OF CARE AND PENDING TX TO MEDSUR UNIT. PT IS AGREEABLE, VERBALIZES UNDERSTANDING AND DENIES QUESTIONS. PT DENIES NEEDS AT THIS TIME. CALL NICOLE WITHIN REACH, AGREES TO CALL PRN.
--- NOTE | 2020-06-07 20:30 | NUR ---
HS SNACK PROVIDED BY Sarah HATFIELD LPN PER PTS REQUEST.
--- NOTE | 2020-06-07 21:50 | NUR ---
TELEPHONE REPORT GIVEN TO Galdino NASCIMENTO RN
--- NOTE | 2020-06-07 21:50 | NUR ---
RECEIVED REPORT FROM LEA ESPARZA. PT TRANSFERRING FROM ICU TO MS2 ROOM # 288.
--- NOTE | 2020-06-07 22:30 | NUR ---
PT ARRIVED TO UNIT FROM ICU VIA WHEELCHAIR & TX TO BED WITH MINIMAL ASSIST. PT IS A & O X 3 & AMBULATORY. CONTIENT OF BLADDER AND BOWELS- USES URINAL & BSC. # 20 PIV IN RAC- PATENT, CLEAN, DRY, AND INTACT. 0.9% NS INFUSING @ 20ML/HR. TELE IN PLACE- SHOWING SR WITH MULTIPLE PVC. O2 @ 5L/MIN VIA NC. VS OBTAINED & ASSESSMENT COMPLETE. NO S/SX OF DISTRESS OR DISCOMFORT NOTED AT THIS TIME. PER PT LAST BM 06/05, SKIN IS INTACT. UPON ARRIVAL PT REQUESTED SLEEPING PILL AND TYLENOL- SEE SEP. PT ORIENTED TO ROOM AND CALL LIGHT, ALL SAFETY & ISOLATION PRECAUTION IN PLACE. WILL CONTINUE TO MONITOR.
--- NOTE | 2020-06-08 00:35 | NUR ---
PT RESTING IN BED, NO S/S OF DISTRESS AT THIS TIME. SAFETY PRECAUTIONS IN PLACE.
[2020-06-08 04:00] VITALS: BP 149/75
--- NOTE | 2020-06-08 04:19 | NUR ---
PT RESTING IN BED, NO S/S OF DISTRESS AT THIS TIME. SAFETY PRECAUTIONS IN PLACE.
[2020-06-08 07:15] VITALS: BP 159/86
--- NOTE | 2020-06-08 07:15 | NUR ---
PATIENT IN BED AT THIS TIME DENIES ANY NEEDS AND STATES PAIN IS A 0. O2 ON AT 5L AND DENIES ANY SHORTNESS OF BREATH. PATIENT A/O X 3 ALL SAFETY MEASURES ARE IN PLACE CALL LIGHT WITHIN REACH AT THIS TIME.
[2020-06-08 11:27] VITALS: BP 139/88
--- NOTE | 2020-06-08 11:31 | NUR ---
PATIENT IN BED AT THIS TIME. O2 TITRATED DOWN TO 4 LITERS AT THIS TIME. ADVISE PATIENT TO CALL OUT TO NURSE IF SHORTNESS OF BREATH OCCURS. ALL SAFETY MEASURES ARE IN PLACE AT THIS TIME. WILL CONTINUE TO MONITOR.
--- NOTE | 2020-06-08 14:57 | NUR ---
PATIENT RESTING IN BED AT THIS TIME 02 ON 4L AND SPO2 IS CURRENTLY AT 97%. PATIENT DENIES ANY SHORTNESS OF BREATH AT THIS TIME. PATIENT WILL CONTINUE TO BE MONITORED AT THIS TIME.
[2020-06-08 15:00] VITALS: BP 119/70
--- NOTE | 2020-06-08 15:56 | NUR ---
PATIENT IN BED AT THIS TIME O2 ON 4L SPO2 93%. DENIES ANY NEEDS AT THIS TIME CALL LIGHT WITHIN REACH. SIDERAILS UP X 2.
[2020-06-08 19:00] VITALS: BP 140/88
--- NOTE | 2020-06-08 20:00 | NUR ---
PT AWAKE RESTING IN BED. PT IS ALERT AND ORIENTED X4. RESP EVEN AND UNLABORED. O2 N/C AT 5L. O2 SAT 91%. O2 N/C INCREASED TO 6L. PT DENIES ANY SHORTNESS OF BREATH OR DIFFICULTY BREATHING. RESP EVEN AND UNLABORED. SKIN WARM AND DRY. LUNGS CLEAR IN UPPER LOBES WITH DIMINISHED BREATH SOUNDS ABD SOFT AND NONDISTENDED WITH BOWEL SOUNDS PRESENT. NO LOWER EXT EDEMA NOTED. PEDAL PULSES PALPATED BILAT. IV SITE PATENT IN RT A.C. NSS AT KVO. TELE SR PER E.D. PT DENIES ANY DISCOMFORT. FREQUENT ROUNDS MADE. CALL NICOLE WITHIN REACH.
--- NOTE | 2020-06-08 20:00 | NUR ---
PT AWAKE RESTING IN BED. ALERT AND ORIENTED X4. RESP EVEN AND UNLABORED. NO DISTRESS NOTED. O2 N/C ON AT 4L. O2 SAT 96%. LUNGS CLEAR IN UPPER LOBES WITH DIMINISHED BREATH SOUNDS IN MID TO LOWER LOBES. ABD SOFT AND NONDISTENDED WITH BOWEL SOUNDS PRESENT. VSS. IV SITE PATENT IN RT A.C WITH NSS AT KVO. PT DENIES ANY DISCOMFORT. TELE SR PER E.D. URINAL AT BEDSIDE VOIDING CLEAR YELLOW URINE. OFFERS NO COMPLAINTS. WILL CONTINUE TO CLOSELY MONITOR. FREQUENT ROUNDS MADE. CALL NICOLE WITHIN REACH.
[2020-06-09] VITALS: BP 144/80
--- NOTE | 2020-06-09 00:13 | NUR ---
PT RESTING IN BED WITH EYES CLOSED. RESP EVEN AND UNLABORED. NO DISTRESS NOTED. O2 N/C ON AT 4L. IV SITE PATENT. WILL CONTINUE TO CLOSELY MONITOR. FREQUENT ROUNDS MADE. CALL NICOLE WITHIN REACH.
[2020-06-09 04:00] VITALS: BP 130/80
--- NOTE | 2020-06-09 04:10 | NUR ---
PT RESTING IN BED. RESP EVEN AND UNLABORED. NO DISTRESS NOTED. ASSESSMENT UNCHANGED. IV SITE PATENT. TELE INTACT SR. FREQUENT ROUNDS MADE. CALL NICOLE WITHIN REACH.
[2020-06-09 05:41] LABS: HEMATOCRIT 40.4 % (39.0-50.0); HEMOGLOBIN 13.1 g/dl (14.0-18.0); IMMATURE GRANULOCYTES 0.6 % (0.0-5.0); MEAN CORPUSCULAR HGB 32.4 pG CALC (26.0-32.0); MEAN CORPUSCULAR HGB CONC 32.4 g/dL CAL (32.0-36.0); NEUT# 4.8 thou/uL (1.82-7.42); RED BLOOD COUNT 4.04 mill/uL (4.70-6.10); RED CELL DISTRI WIDTH 13.3 % (11.5-15.5)
--- NOTE | 2020-06-09 06:08 | NUR ---
PT RESTING IN BED WATCHING T.V. VOIDING CLEAR YELLOW URINE. IV SITE PATENT . RESP EVEN AND UNLABORED. NO DISTRESS NOTED. PT DENIES ANY DIFFICULTY BREATHING. PT DENIES ANY DISCOMFORT. TELE INTACT . FREQUENT ROUNDS MADE. CALL NICOLE WITHIN REACH.
[2020-06-09 06:11] LABS: ALBUMIN 2.8 g/dL (3.2-5.0); ALKALINE PHOSPHATASE 73 u/l (38-126); ANION GAP 11 (6-22 (CALC)); BILIRUBIN, TOTAL 0.4 mg/dL (0.0-1.4); BUN 23 mg/dL (8-23); BUN/CREATININE RATIO 33 (12-20 (CALC)); C-REACTIVE PROTEIN 2.1 mg/dL (0-0.9); CARBON DIOXIDE 25 mmol/l (22-30); CHLORIDE 109 mmol/l (95-108); CREATININE 0.7 mg/dL (0.7-1.3); GFR > 60 ML/MIN (>=60 (CALC)); GFR FOR AFR.AMER. > 60 ML/MIN (>=60 (CALC)); POTASSIUM 4.4 mmol/l (3.5-5.1); SGOT/AST 34 u/l (19-48); SODIUM 140 mmol/l (137-146); TOTAL PROTEIN 5.8 g/dL (6.3-8.2)
--- NOTE | 2020-06-09 07:54 | NUR ---
SHIFT CHANGE REPORT, PT AWAKE ALERT AND ORIENTED RESTING IN BED, NO C/O DISCOMFORT, CALL NICOLE IN REACH.
[2020-06-09 08:33] VITALS: BP 139/82
[2020-06-09 10:30] VITALS: BP 139/75
[2020-06-09] MEDS ORDERED: VENTOLIN H108 MCG/AC IN (11:19)
[2020-06-09] MEDS ORDERED: AMLODIPINE BESYL5 MG PO (11:19)
--- NOTE | 2020-06-09 12:00 | NUR ---
MEDICAL TEAM ROUNDING AND DISCUSSED D/C PLANS WITH PT, TO ARRANGE FOR HOME O2
[2020-06-09] MEDS ORDERED: METOPROL TAR25 MG PO (12:06)
--- NOTE | 2020-06-09 13:08 | NUR ---
PT DID NOT WANT HIS LINEN CHANGED
[2020-06-09 15:00] VITALS: BP 144/84
--- NOTE | 2020-06-09 18:20 | NUR ---
PT TO BE D/C ON O2, CM UNABLE TO GET ARRANGEMENTS FOR DELIVERY DUE TO PT NOT HAVING INSURANCE COUPLED WITH HOLIDAY CLOSURES, HAND WORKER AND AWARE, PT WILL STAY HERE TILL TOMORROW WHEN ARRANGEMENTS CAN BE MADE FOR O2 DELIVERY
--- NOTE | 2020-06-09 18:44 | NUR ---
JUST CALLED AFTER RECEIVING ORDER TO D/C 0.9NS @ 20ML/HR STATING THEY ONLY HAVE AND ORDER FOR 0.9NS @ 125ML/HR. NURSE INFORMED KELSI THE ORDER WE HAVE IS 0.9NS @ 20ML/HR AND THE ORDER SHE QUOTED IS NOT IN OUR COMPUTER, DECISION TO HAVE [facility] WILL ADDRESS SITUATION.
[2020-06-09 20:00] VITALS: BP 137/88
--- NOTE | 2020-06-09 20:00 | NUR ---
RECEIVED REPORT FROM KAELYN PATIENT SITTING IN BED, WATCHING TV, DENIES PAIN AT THIS TIME, HOOKED TO TELEMETRY SR 77, WITH IV ON THE RAC G20 PATENT AND FLUSHES WELL, ACTIVE BOWEL SOUNDS ON ALL QUADRANTS, CLEAR TO DIMINISHED LUNG SOUNDS, ON O2 @ 4LPM POX 93% BREATHING SHALLOW,EXERTIONAL DYSPNEA NOTED, USES BED SIDE COMODE, REMAINS ON AIR/CONTACT ISOLATION, CALL LIGHT AT REACH.
--- NOTE | 2020-06-10 | NUR ---
PATIENT RESTING IN BED WITH EYES CLOSED, NOT IN DISTRESS REMAINS O N O2 @ 4LPM CALL LIGHT AT REACH.
[2020-06-10 00:23] VITALS: BP 135/82
[2020-06-10 04:25] VITALS: BP 141/84
--- NOTE | 2020-06-10 05:02 | NUR ---
PATIENT RESTING IN BED WITH EYS CLOSED, BREATHING SHALLOW UNLABORED, CALL LIGHT AT REACH.
[2020-06-10 07:53] VITALS: BP 135/90
--- NOTE | 2020-06-10 07:53 | NUR ---
PATEINT IN BED WITH O2 ON AT 4L DENIES ANY PAIN AT THIST TIME CALL LIGHT WITHIN REACH. SIDERAILS UP X 2. TELE IN PLACE. AERONAUTICAL ENGINEERING PROFESSOR DONE AT THIS TIME
[2020-06-10 11:03] VITALS: BP 123/66
[2020-06-10] MEDS ORDERED: OXY1 (12:02)
--- NOTE | 2020-06-10 12:07 | NUR ---
WALK TEST DONE AT THIS TIME AND WITHOUT O2 PATIENT SPO2 WAS 71%. CASEMANAGEMENT NOTIFIED.
--- NOTE | 2020-06-10 12:17 | NUR ---
PATIENT RESTING IN BED AT THIS TIME DENIES EVIE NEEDS O2 REMAINS ON AT 4 LITERS . CALL LIGHT WITHIN REACH.
--- NOTE | 2020-06-10 14:25 | NUR ---
PATIENT D/C AT THIS TIME. D/C INSTRUCTIONS GONE OVER WITH PATIENT. PATIENT RECEIVED TO PRESCRIPTIONS ONE FOR HOME O2 AND METROP[place]OL. PATIENT EDUCATED ON O2 TITRATION AND LUNG EXERCISES TO EXPAND CAPACITY. PATIENT VERBALIZES UNDERSTANDING OF ALL D/C INSTRUCTIONS AT THIS TIME.
--- NOTE | 2020-06-10 14:55 | NUR ---
Discharge instructions given. Patient verbalizes understanding of same. Discharged in stable condition via Wheelchair to Home with spouse. All belongings sent with pt.
== END 2020-06-10 14:50 | disposition home or self-care (01) | DRG 177 ==
LOC: ED 22:59 → ED-I 05-28 01:22 → ED 05-28 01:58 → ED-I 05-28 01:59 → ICU 05-28 01:59 → MS2 06-07 22:50
PROVIDERS: Emergency Medicine; Nurse Practitioner; ADMIT Internal Medicine; ATTEND Internal Medicine
DX: U07.1 COVID-19 (principal); J12.89 Other viral pneumonia; J96.01 Acute respiratory failure with hypoxia; I47.2 Ventricular tachycardia; I49.3 Ventricular premature depolarization; I10 Essential (primary) hypertension
CPT/HCPCS: J1650; J3475; Q9967